=== PATIENT | male | born 1990 | race Caucasian/White ===

== ENCOUNTER → 2020-05-19 13:49 | Outpatient (BNVA) | payer MEDICAID, SELFPAY | PROVIDERS: PCP Family Medicine; Visit Provider Internal Medicine Gastroenterology ==

== ENCOUNTER 2020-07-16 08:10 | Outpatient (REF) | payer MEDICAID, SELFPAY ==
--- NOTE | ~2020-07-16 | MR_ITS ---
EXAMINATION: MR OF THE ABDOMEN AND PELVIS WITH AND WITHOUT CONTRAST CLINICAL INFORMATION: Assess small and large bowel activity. COMPARISON: None TECHNIQUE: Sagittal axial and coronal sequences through the abdomen and pelvis following oral Breeza contrast and with and without IV contrast. The patient received 1.5 L of oral Breeza contrast and 9 mL intravenous Gadavist gadolinium contrast. FINDINGS: The stomach is well distended and is normal appearing. The small bowel is normal appearing. No bowel wall thickening, enhancement, bowel dilatation or stricture is seen. The large bowel is normal appearing. No wall thickening, dilatation or abnormal wall enhancement is seen. The appendix is normal. No inflammatory changes of the surrounding fat or prominent vascularity/vasa recta, abscess or fistula is seen. The lung bases are clear. The liver and gallbladder are normal. There is no biliary duct dilatation. The pancreas is normal. The main pancreatic duct does not appear dilated. The spleen is normal. The adrenal glands and kidneys are normal. The bladder is normal. The prostate gland does not appear enlarged. No ascites or adenopathy is seen. Vascular structures are unremarkable. No hernia is seen. Bony structures are unremarkable. MR/MR abdomen wo/w con IMPRESSION: Unremarkable MRI of the abdomen and pelvis. No evidence of active inflammatory bowel disease.
--- NOTE | ~2020-07-16 | MR_ITS ---
EXAMINATION: MR OF THE ABDOMEN AND PELVIS WITH AND WITHOUT CONTRAST CLINICAL INFORMATION: Assess small and large bowel activity. COMPARISON: None TECHNIQUE: Sagittal axial and coronal sequences through the abdomen and pelvis following oral Breeza contrast and with and without IV contrast. The patient received 1.5 L of oral Breeza contrast and 9 mL intravenous Gadavist gadolinium contrast. FINDINGS: The stomach is well distended and is normal appearing. The small bowel is normal appearing. No bowel wall thickening, enhancement, bowel dilatation or stricture is seen. The large bowel is normal appearing. No wall thickening, dilatation or abnormal wall enhancement is seen. The appendix is normal. No inflammatory changes of the surrounding fat or prominent vascularity/vasa recta, abscess or fistula is seen. The lung bases are clear. The liver and gallbladder are normal. There is no biliary duct dilatation. The pancreas is normal. The main pancreatic duct does not appear dilated. The spleen is normal. The adrenal glands and kidneys are normal. The bladder is normal. The prostate gland does not appear enlarged. No ascites or adenopathy is seen. Vascular structures are unremarkable. No hernia is seen. Bony structures are unremarkable. MR/MR pelvis wo/w con IMPRESSION: Unremarkable MRI of the abdomen and pelvis. No evidence of active inflammatory bowel disease.
== END 2020-07-16 08:11 | disposition home or self-care (01) ==
LOC: HO.MRI 08:10
PROVIDERS: Visit Provider Internal Medicine Gastroenterology
DX: K50.80 Crohn's disease of both small and large intestine without complications (principal)
CPT/HCPCS: 72197; 74183; A9585

== ENCOUNTER → 2021-03-06 11:38 | Outpatient (BNVA) | payer MEDICAID, SELFPAY | PROVIDERS: PCP Family Medicine; Visit Provider Internal Medicine Gastroenterology ==

== ENCOUNTER 2021-03-11 11:43 | Outpatient (REF) | payer MEDICAID, SELFPAY | END 2021-03-11 11:44 | disposition home or self-care (01) | LOC: HO.LAB 11:43 | PROVIDERS: PCP Family Medicine; Visit Provider Internal Medicine Gastroenterology | DX: Z13.89 Encounter for screening for other disorder (principal) ==

== ENCOUNTER 2021-03-16 12:14 | Outpatient (REF) | payer MEDICAID, SELFPAY ==
[2021-03-16 12:50] LABS: MANUAL DIFF FLAG NO
[2021-03-16 12:59] LABS: Basophils Percent Auto 0.4 % (0-2); Eosinophils Absolute Auto 0.1 X10*3/uL (0.0-0.4); Eosinophils Percent Auto 1.6 % (0-4); Hematocrit 44.8 % (42.0-52.0); Hemoglobin 15.2 g/dl (14.0-18.0); Imm Gran Abs Auto 0.01 X10*3/uL (0.00-0.03); Imm Gran Pct Auto 0.2 % (0.0-0.4); Lymphocytes Absolute Auto 1.4 X10*3/uL (1.2-4.9); Lymphocytes Percent Auto 27.9 % (20-40); Mean Corpuscular HGB Conc 33.9 g/dl (31.0-36.0); Mean Corpuscular Hemoglobin 29.7 pg (27.0-33.0); Mean Corpuscular Volume 87.7 fL (80.0-98.0); Mean Platelet Volume 11.7 fL (9.4-12.4); Monocytes Absolute Auto 0.4 X10*3/uL (0.1-1.2); Monocytes Percent Auto 6.9 % (2-11); Neutrophils Absolute Auto 3.2 x10*3/uL (2.0-8.3); Platelet Count 211 X10*3/uL (160-400); Red Blood Count 5.11 X10*6/uL (4.60-5.80); Red Cell Distribution Width 11.7 % (11.0-16.0); White Blood Count 5.1 X10*3/uL (4.8-10.8)
[2021-03-16 13:30] LABS: Alanine Aminotransferase 42 U/L (0-40); Albumin Level 4.4 g/dL (3.5-5.0); Alkaline Phosphatase 60 U/L (39-117); Anion Gap 11 (12-20); Aspartate Amino Transferase 26 U/L (5-37); Bilirubin Total 0.5 mg/dL (0.0-1.0); Blood Urea Nitrogen 10 mg/dL (9-16); C Reactive Protein 0.18 mg/dL (< or = 0.50); Calcium 9.6 mg/dL (8.4-10.2); Carbon Dioxide 29 mmol/L (22-29); Chloride 105 mmol/L (96-108); Estimated Glomerular Filt Rate > 60; Glucose Random 101 mg/dL (60-115); Potassium 4.5 mmol/L (3.3-5.1); Sodium 140 mmol/L (135-145); Total Protein 7.2 g/dL (6.5-8.0)
[2021-03-16 13:50] LABS: Ferritin 81 ng/mL (20-250); Vitamin D 25-OH Total 33.2 ng/mL (>30)
[2021-03-16 14:06] LABS: Folate 13.9 ng/mL (> or = 4.0); Vitamin B12 436 pg/mL (200-900)
[2021-03-17 08:51] LABS: ~HepC Num1 0.09 S/CO (0.00-0.79); ~Hepatitis B Surface Antibody REACTIVE (Nonreactive); ~Hepatitis C Antibody Nonreactive (Nonreactive)
[2021-03-17 09:11] LABS: HBc Num1 0.07 S/CO (0.00-0.79); Hepatitis B Core Antibody Nonreactive (Nonreactive); Hepatitis B Surface Antigen Negative (Negative)
[2021-03-18 08:25] LABS: HBsAGNum1 0.21 S/CO (0.00-0.99)
[2021-03-18 08:35] LABS: Hepatitis A Antibody IgM 0.15 Index (0-0.79); ~Hepatitis A Antibody IgM Nonreactive (Nonreactive)
[2021-03-18 19:56] LABS: TS Negative Control Passed; TS Panel A 0; TS Panel B 0; TS Positive Control Passed; TSpotTB Negative (Negative)
[2021-03-19 01:01] LABS: Vitamin K1 4384 pg/mL (130-1500)
[2021-03-19 07:02] LABS: Zinc 64 mcg/dL (60-130)
[2021-03-19 16:36] LABS: Vitamin B6 11.4 ng/mL (2.1-21.7)
[2021-03-19 19:41] LABS: Alpha-Tocopherol 12.8 mg/L (5.7-19.9); Beta-Gamma Tocopherol <1.0 mg/L (<=4.3)
[2021-03-20 00:56] LABS: Vitamin A 41 mcg/dL (38-98)
[2021-03-20 12:16] LABS: Vitamin B5 (Pantothenic Acid) 129 ng/mL (<275)
[2021-03-21 12:06] LABS: Nicotinamide <20 ng/mL; Vit B3 - Nicotinic Acid <20 ng/mL
== END 2021-03-16 12:15 | disposition home or self-care (01) ==
LOC: HO.LAB 12:14
PROVIDERS: PCP Family Medicine; Visit Provider Internal Medicine Gastroenterology
DX: Z11.1 Encounter for screening for respiratory tuberculosis (principal); K50.80 Crohn's disease of both small and large intestine without complications; K75.81 Nonalcoholic steatohepatitis (NASH)
CPT/HCPCS: 36415; 80053; 82180; 82306; 82607; 82728; 82746; 84207; 84446; 84590; 84591; 84597; 84630; 85025; 86140; 86481; 86704; 86706; 86709; 86803; 87340

== ENCOUNTER 2021-06-24 09:27 | Day surgery (SDC) | payer MEDICAID, SELFPAY ==
--- NOTE | 2021-06-24 09:51 | MHC.SHP ---
Pre-Procedural Eval Section A Date of Service: 06/24/21 Section B Chief Complaint: crohn's disease Relevant Family History (Specify if Yes): No Relevant Social History: None Present Medications: see Short Stay Collaborative assessment Medical History: Significant History (Bipolar 1 disorder Crohn's disease of both small and large intestine Depression GERD (gastroesophageal reflux disease) History of anemia History of GI bleed Hx of anxiety disorder Migraine) History of Previous Operations: Relevant previous surgery/procedure and date(s) (egd,colonoscopy) Allergies: Allergies Allergy/AdvReac Type Severity Reaction Status Date / Time Enviromental Allergy Mild unknown Uncoded 06/18/21 14:56 Review of Systems Sugical H&P ROS: Negative: Constitution, Cardiovascular, Respiratory, Neurological, Psychiatric, Hem-Onc, Allergic/Immunologic, Gastrointestinal, Genitourinary, Musculoskeletal, Integumentary, Endocrine and Eyes/Ears/Nose/Throat Exam Surgical H&P Exam: Normal: HEENT, Normal: Heart, Normal: Lungs, Normal: Extremities, Normal: Abdomen, Normal: Skin and Normal: Neurological Plan Diagnosis/Plan: Unchanged I have reviewed the history and physical and performed a pertinent physical examination on my patient. No changes have occurred unless specified.
[2021-06-24 09:52] VITALS: BP 136/82; PULSE 81; RESP 16; TEMP 36.3; O2SAT 98; BMI 30.7
--- NOTE | 2021-06-24 09:52 | P.CONAN_ITS ---
[facility] Active Problems Active Problems: All Active Problems (Updated 06/18/21 @ 14:58 by Tish Perry RN) Crohn's disease of both small and large intestine (Acute) Past Medical History Medical History Bipolar 1 disorder Crohn's disease of both small and large intestine Depression GERD (gastroesophageal reflux disease) History of anemia History of GI bleed Hx of anxiety disorder Migraine Family History Family History Father Diabetes Hypertension Family history of problems with anesthesia: No Surgical History Surgical History History of colonoscopy Hx of esophagogastroduodenoscopy History of Problems with Anesthesia: No Social History Social History Household Members: Family Alcohol intake: current Alcohol intake frequency: holidays/special occasions only Advance Directives: No Advance Directives Information Provided: Yes Current occupational status: unemployed Meds Allergies Allergy/AdvReac Type Severity Reaction Status Date / Time Enviromental Allergy Mild unknown Uncoded 06/18/21 14:56 Home Medications Medication Instructions Recorded Confirmed Last Taken Type azathioprine 50 mg tablet 50 mg PO DAILY 05/19/20 06/18/21 Unknown History cholecalciferol (vitamin D3) 25 25 mcg PO DAILY 06/18/21 06/18/21 Unknown History mcg (1,000 unit) capsule (Vitamin D3) mesalamine 1.2 gram tablet,delayed 4 tab PO DAILY 06/18/21 06/18/21 Unknown History release (Lialda) Exam Exam Date and Time: June 24, 2021 0952 Airway Mallampati Class: II TM Dist: >3cm Neck ROM: Full Heart: rrr Lungs: cta Assessment and Plan Assessment Anesthesia Assessment: Anesthesia Plan Discussed and Chart Reviewed Final Anesthetic Review Family History of Problems with Anesthesia: No History of Problems with Anesthesia: No NPO: Yes ASA Class: II Final Preanesthetic Review: No Changes in Pt Med Stat, Meds/Allgs Chart Reviewed and Consent Obtained/Reviewed Patient Risk: Intermediate Procedure Risk: Intermediate Anesthetic Plan Anesthetic Plan: MAC: Disposition: Standard PACU
--- NOTE | 2021-06-24 09:57 | PM.OP ---
Brief Operative Note Date of Service: 06/24/21 Pre-op diagnosis: crohns disease Post-op diagnosis: same Procedure: see op note Surgeon: Aaliyah Bai MD Anesthesia: MAC Was an Relief Map Modeler used for this Procedure?: No Estimated blood loss (mL): 0 Condition: stable Disposition: PACU
[2021-06-24] MEDS: Lactated Ringers 1,000 ML 50 ML IVCONT (09:58)
--- NOTE | 2021-06-24 09:58 | W.PM.OPN ---
Operative Note Operative Note Date of Service: 06/24/21 Narrative: Operative Information Procedure Description: Colonoscopy COLONOSCOPY Instrument: Olympus variable stiffness pediatric scope 190L Colonoscopy Monitoring: Vital signs and clinical assessment, continuous EKG monitoring, Pulse oximetry, Carbon Dioxide monitoring and blood pressure monitoring were done throughout the procedure. Colon withdrawal time was 22 minutes. Procedure: The patient was placed in the left lateral decubitis position and pre-procedure medications were administered. After a digital rectal examination of the ano-rectum, the video colonoscope was inserted into the rectum and advanced through the colon to the cecum/TI. The colonoscope was slowly withdrawn in a retrograde panoramic fashion and the colon mucosa was carefully examined including a retroflexed view of the rectum. Findings and interventions are described below. Procedure Difficulty: easy Findings: Terminal Ileum-normal, erythema around the ileocecal valve area Cecum: patchy erythema Ascending Colon: slight granularity to mucosa, granular and nodular folds Transverse Colon -normal Descending Colon:normal Sigmoid Colon: patchy erythema Rectum: Retroflexion with small internal hemorrhoids, grade I Anorectum - normal Colon preparation: [place] Bowel Preparation Scale Right colon; 2 Transverse colon: 3 Left colon; 2 (0 = Unprepared colon segment with mucosa not seen due to solid stool that cannot be cleared. 1 = Portion of mucosa of the colon segment seen, but other areas of the colon segment not well seen due to staining, residual stool and/or opaque liquid. 2 = Minor amount of residual staining, small fragments of stool and/or opaque liquid, but mucosa of colon segment seen well. 3 = Entire mucosa of colon segment seen well with no residual staining, small fragments of stool or opaque liquid) Impression and Post Procedure Diagnosis: colitis internal hemorrhoids Plan: High fiber diet leaflet Avoid straining at stool, epsom salts and sitz bath, anusol supps or cream Repeat Colonoscopy in 1-2 years or earlier if clinically indicated depending on results may need biologic for deeper remission Above findings were reviewed with the patient and relevant handouts were provided if indicated.
[2021-06-24 10:41] VITALS: BP 127/75; PULSE 94; RESP 14; TEMP 36.2; O2SAT 97
[2021-06-24 10:56] VITALS: BP 122/74; PULSE 79; RESP 16; TEMP 36.2; O2SAT 97
== END 2021-06-24 12:08 | disposition home or self-care (01) ==
PROVIDERS: PCP Family Medicine; Visit Provider Internal Medicine Gastroenterology
PROC: 0DJD8ZZ Inspection of Lower Intestinal Tract, Via Natural or Artificial Opening Endoscopic (ICD-10-PCS; CPT 45378; principal; 2021-06-24 11:00)
DX: K50.80 Crohn's disease of both small and large intestine without complications (principal); K64.0 First degree hemorrhoids; K21.9 Gastro-esophageal reflux disease without esophagitis; F31.9 Bipolar disorder, unspecified; F41.1 Generalized anxiety disorder; G43.909 Migraine, unspecified, not intractable, without status migrainosus; Z79.899 Other long term (current) drug therapy
CPT/HCPCS: 45380; 88305

== ENCOUNTER 2021-07-15 11:17 | Outpatient (REF) | payer MEDICAID, SELFPAY | END 2021-07-15 11:18 | disposition home or self-care (01) | LOC: HO.MDS 11:17 | PROVIDERS: PCP Family Medicine; Visit Provider Internal Medicine Gastroenterology | DX: K50.80 Crohn's disease of both small and large intestine without complications (principal) | CPT/HCPCS: 96365; J3380 ==

== ENCOUNTER → 2021-07-27 11:12 | Outpatient (BNVA) | payer MEDICAID, SELFPAY | PROVIDERS: PCP Family Medicine; Referring Provider Family Medicine; Visit Provider Internal Medicine Gastroenterology | DX: K50.90 Crohn's disease, unspecified, without complications (principal) | CPT/HCPCS: 99212 ==

== ENCOUNTER 2021-07-29 12:50 | Outpatient (REF) | payer MEDICAID, SELFPAY | END 2021-07-29 12:51 | disposition home or self-care (01) | LOC: HO.MDS 12:50 | PROVIDERS: PCP Family Medicine; Visit Provider Internal Medicine Gastroenterology | DX: K50.80 Crohn's disease of both small and large intestine without complications (principal) | CPT/HCPCS: 96365; J3380 ==

== ENCOUNTER 2021-08-26 11:32 | Outpatient (REF) | payer MEDICAID, SELFPAY | END 2021-08-26 11:33 | disposition home or self-care (01) | LOC: HO.MDS 11:32 | PROVIDERS: PCP Family Medicine; Visit Provider Internal Medicine Gastroenterology | DX: K50.80 Crohn's disease of both small and large intestine without complications (principal) | CPT/HCPCS: 96365; J3380 ==

== ENCOUNTER 2021-09-21 08:04 | Outpatient (REF) | payer MEDICAID, SELFPAY ==
--- NOTE | ~2021-09-21 | MR_ITS ---
EXAMINATION: MR ANGIOGRAPHY BRAIN WITHOUT CONTRAST CLINICAL INFORMATION: Severe headache. COMPARISON: None available. TECHNIQUE: 3D [id number] MR angiography was performed through the brain without the use of intravenous gadolinium and axial source images were reviewed along with rotating MIPs. FINDINGS: Normal flow-related signal within the anterior circulation without evidence of focal stenosis or occlusion of the intradural internal carotid, middle cerebral, or anterior cerebral arteries. Normal flow-related signal within the posterior circulation without evidence of focal stenosis or occlusion of the intradural vertebral, basilar, superior cerebellar, or posterior cerebral arteries. No demonstrated intradural aneurysms. The cerebellar tonsils are low lying, positioned 0.5 cm below the foramen magnum. The CSF space of the foramen magnum is maintained. No additional significant abnormalities on limited evaluation of the intracranial structures. Normal appearance of the pituitary gland. The suprasellar cistern remains widely patent. Moderate rightward nasal septal deviation with spurring. MR/MR angio head wo con IMPRESSION: 1. Normal brain MRA. 2. Borderline Chiari I malformation. The cerebellar tonsils are positioned 0.5 cm below the foramen magnum.
== END 2021-09-21 08:05 | disposition home or self-care (01) ==
LOC: HO.MRI 08:04
PROVIDERS: PCP Family Medicine; Visit Provider Family Medicine
DX: G44.82 Headache associated with sexual activity (principal)
CPT/HCPCS: 70544

== ENCOUNTER 2021-10-21 12:10 | Outpatient (REF) | payer MEDICAID, SELFPAY | END 2021-10-21 12:11 | disposition home or self-care (01) | LOC: HO.MDS 12:10 | PROVIDERS: PCP Family Medicine; Visit Provider Internal Medicine Gastroenterology | DX: K50.80 Crohn's disease of both small and large intestine without complications (principal) | CPT/HCPCS: 96365; J3380 ==

== ENCOUNTER 2021-12-16 12:58 | Outpatient (REF) | payer MEDICAID, SELFPAY | END 2021-12-16 12:59 | disposition home or self-care (01) | LOC: HO.MDS 12:58 | PROVIDERS: Visit Provider Internal Medicine Gastroenterology | DX: K50.80 Crohn's disease of both small and large intestine without complications (principal) | CPT/HCPCS: 96365; J3380 ==

== ENCOUNTER 2022-02-12 12:54 | Outpatient (REF) | payer MEDICAID, SELFPAY | END 2022-02-12 12:55 | disposition home or self-care (01) | LOC: HO.MDS 12:54 | PROVIDERS: Visit Provider Internal Medicine Gastroenterology | DX: K50.80 Crohn's disease of both small and large intestine without complications (principal) | CPT/HCPCS: 96365; J3380 ==

== ENCOUNTER 2022-04-07 12:55 | Outpatient (REF) | payer MEDICAID, SELFPAY ==
[2022-04-10 02:24] LABS: TS Negative Control Passed; TS Panel A 0; TS Panel B 0; TS Positive Control Passed; TSpotTB Negative (Negative)
== END 2022-04-07 12:56 | disposition home or self-care (01) ==
LOC: HO.LAB 12:55
PROVIDERS: PCP Family Medicine; Visit Provider Internal Medicine Gastroenterology
DX: Z11.1 Encounter for screening for respiratory tuberculosis (principal); K50.80 Crohn's disease of both small and large intestine without complications
CPT/HCPCS: 36415; 86481

== ENCOUNTER 2022-04-23 12:36 | Outpatient (REF) | payer MEDICAID, SELFPAY | END 2022-04-23 12:37 | disposition home or self-care (01) | LOC: HO.MDS 12:36 | PROVIDERS: Visit Provider Internal Medicine Gastroenterology | DX: K50.80 Crohn's disease of both small and large intestine without complications (principal) | CPT/HCPCS: 96365; J3380 ==

== ENCOUNTER 2022-05-24 13:47 | Outpatient (REF) | payer MEDICAID, SELFPAY ==
[2022-05-24 14:56] LABS: MANUAL DIFF FLAG NO
[2022-05-24 15:38] LABS: Basophils Percent Auto 0.5 % (0-2); Eosinophils Percent Auto 0.2 % (0-4); Hematocrit 45.5 % (42.0-52.0); Hemoglobin 15.4 g/dl (14.0-18.0); Imm Gran Abs Auto 0.01 X10*3/uL (0.00-0.03); Imm Gran Pct Auto 0.2 % (0.0-0.4); Lymphocytes Percent Auto 35.8 % (20-40); Mean Corpuscular HGB Conc 33.8 g/dl (31.0-36.0); Mean Corpuscular Hemoglobin 28.9 pg (27.0-33.0); Mean Corpuscular Volume 85.4 fL (80.0-98.0); Mean Platelet Volume 11.5 fL (9.4-12.4); Monocytes Absolute Auto 0.3 X10*3/uL (0.1-1.2); Monocytes Percent Auto 5.8 % (2-11); Neutrophils Absolute Auto 3.2 x10*3/uL (2.0-8.3); Neutrophils Percent Auto 57.5 % (45-73); Platelet Count 221 X10*3/uL (160-400); Red Blood Count 5.33 X10*6/uL (4.60-5.80); Red Cell Distribution Width 11.7 % (11.0-16.0); White Blood Count 5.5 X10*3/uL (4.8-10.8)
[2022-05-24 15:44] LABS: Alanine Aminotransferase 58 U/L (0-40); Albumin Level 4.6 g/dL (3.5-5.0); Alkaline Phosphatase 67 U/L (39-117); Anion Gap 13 (12-20); Aspartate Amino Transferase 36 U/L (5-37); Blood Urea Nitrogen 14 mg/dL (9-16); C Reactive Protein 0.14 mg/dL (< or = 0.50); Calcium 9.6 mg/dL (8.4-10.2); Carbon Dioxide 27 mmol/L (22-29); Chloride 103 mmol/L (96-108); Estimated Glomerular Filt Rate > 60; Glucose Random 89 mg/dL (60-115); Potassium 4.3 mmol/L (3.3-5.1); Sodium 139 mmol/L (135-145); Total Protein 7.2 g/dL (6.5-8.0)
[2022-05-24 16:13] LABS: Ferritin 139 ng/mL (20-250); Folate 15.9 ng/mL (> or = 4.0); Vitamin B12 480 pg/mL (200-900)
== END 2022-05-24 13:48 | disposition home or self-care (01) ==
LOC: HO.LAB 13:47
PROVIDERS: PCP Family Medicine; Referring Provider Family Medicine; Visit Provider Internal Medicine Gastroenterology
DX: K50.80 Crohn's disease of both small and large intestine without complications (principal); K75.81 Nonalcoholic steatohepatitis (NASH)
CPT/HCPCS: 36415; 80053; 82607; 82728; 82746; 85025; 86140; 99212

== ENCOUNTER 2022-06-18 13:42 | Outpatient (REF) | payer MEDICAID, SELFPAY | END 2022-06-18 13:43 | disposition home or self-care (01) | LOC: HO.MDS 13:42 | PROVIDERS: Visit Provider Internal Medicine Gastroenterology | DX: K50.80 Crohn's disease of both small and large intestine without complications (principal) | CPT/HCPCS: 96365; J3380 ==

== ENCOUNTER 2022-08-13 13:27 | Outpatient (REF) | payer OTHER, SELFPAY | END 2022-08-13 13:28 | disposition home or self-care (01) | LOC: HO.MDS 13:27 | PROVIDERS: Visit Provider Internal Medicine Gastroenterology | DX: K50.80 Crohn's disease of both small and large intestine without complications (principal) | CPT/HCPCS: 96365; J3380 ==

== ENCOUNTER 2022-10-06 14:01 | Outpatient (REF) | payer OTHER, SELFPAY | END 2022-10-06 14:02 | disposition home or self-care (01) | LOC: HO.MDS 14:01 | PROVIDERS: Visit Provider Internal Medicine Gastroenterology | DX: K50.90 Crohn's disease, unspecified, without complications (principal) | CPT/HCPCS: 96365; J3380 ==

== ENCOUNTER 2022-11-29 13:55 | Outpatient (AMB) | payer OTHER, MEDICAID, SELFPAY ==
--- NOTE | 2022-11-29 14:06 | MHC.OFFVIS ---
Intake Vital Signs 11/29/22 14:07 Height 5 ft 6 in Weight 194 lb 0.108 oz BMI 31.3 BP 118/81 Blood Pressure Location Lt brachial Position Sitting Pulse 68 Intake Visit Reasons: 6 month follow up Intake Note: Juan Carlos presents in the office as a 6 month follow up. CC: He states that he has a lot of questions. 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 Based on this he was placed on entyvio with good response Other data: IMAGING: MRI 06/2020-- unremarkable Prior endoscopies: EGD/COLO--[id number] Moderate activity hep flex and rectosigmoid? (skip areas documented) 2005 colon and small bowel involved. (colon most active @ time? 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 VITAL SIGNS:see workflow HEENT: Nonicteric sclerae, PERRLA, EOMI. Oropharynx clear. Moist mucous membranes. Conjunctivae appear well perfused. No thyroid mass. CHEST: Chest wall is nontender. HEART: Regular rate and rhythm without murmurs. LUNGS: Clear to auscultation bilaterally. ABDOMEN: Soft, positive bowel sounds, LUQ tender, no organomegaly.no flank tenderness SKIN: No rash, no excessive bruising, petechiae, or purpura. NEUROLOGIC: Cranial nerves II-XII intact without motor/sensory deficit. A/P: 1/ crohns disease, on entyvio with good response thus far clinically--going to [place] later this year PLAN: 1/ cont with entyvio--if available in [place] continue, if not then change to humira 2/ repeat colonoscopy maybe before he leaves, or can do it in [place] ? [facility] Medical History Bipolar 1 disorder Crohn's disease of both small and large intestine Depression GERD (gastroesophageal reflux disease) History of anemia History of GI bleed Hx of anxiety disorder Migraine Surgical History History of colonoscopy Hx of esophagogastroduodenoscopy Family History Father Diabetes Hypertension Social History Household Members: Family Alcohol intake: current Alcohol intake frequency: holidays/special occasions only Patient Tobacco Use Status: Never used Tobacco Current occupational status: unemployed Physical Exam Vital Signs: Last Vital Signs Pulse 68 11/29/22 14:07 BP 118/81 11/29/22 14:07 BMI result Body Mass Index 31.3 Assessment & Plan Assessment & Plan (1) Crohn's disease of both small and large intestine: Code(s): K50.80 - Crohn's disease of both small and large intestine without complications Coding Level of Care Code Est Pt Level 3 (20104) Diagnoses Crohn's disease of both small and large intestine K50.80
[2022-11-29 14:07] VITALS: BP 118/81; PULSE 68; BMI 31.3
== END 2022-11-29 15:19 | disposition home or self-care (01) ==
PROVIDERS: PCP Family Medicine; Visit Provider Internal Medicine Gastroenterology
DX: K50.80 Crohn's disease of both small and large intestine without complications (principal)
CPT/HCPCS: 99213

== ENCOUNTER → 2022-11-29 13:55 | Outpatient (BNVA) | payer OTHER, SELFPAY | PROVIDERS: PCP Family Medicine; Visit Provider Internal Medicine Gastroenterology | DX: K50.80 Crohn's disease of both small and large intestine without complications (principal); K21.9 Gastro-esophageal reflux disease without esophagitis | CPT/HCPCS: 99212 ==

== ENCOUNTER 2022-12-01 13:57 | Outpatient (REF) | payer OTHER, SELFPAY | END 2022-12-01 13:58 | disposition home or self-care (01) | LOC: HO.MDS 13:57 | PROVIDERS: Visit Provider Internal Medicine Gastroenterology | DX: K50.90 Crohn's disease, unspecified, without complications (principal) | CPT/HCPCS: 96365; J3380 ==

== ENCOUNTER 2022-12-23 07:45 | Day surgery (SDC) | payer OTHER, SELFPAY ==
[2022-12-21 11:13] VITALS: BMI 31.3
--- NOTE | 2022-12-22 10:27 | P.CONAN_ITS ---
Documented by User: Jessa Carey NP 12/22/22 10:27 HPI - Anesthesia Eval Consult details Narrative: 32yo M for Colonoscopy PMFSH Active Problems Active Problems: All Active Problems (Updated 06/18/21 @ 14:58 by Tish Perry RN) Crohn's disease of both small and large intestine (Acute) Past Medical History Medical History Bipolar 1 disorder Crohn's disease of both small and large intestine Depression GERD (gastroesophageal reflux disease) History of anemia History of GI bleed Hx of anxiety disorder Migraine Family History Family History Father Diabetes Hypertension Family history of problems with anesthesia: No Surgical History Surgical History History of colonoscopy Hx of esophagogastroduodenoscopy History of Problems with Anesthesia: No Social History Social History Household Members: Family Alcohol intake: current Alcohol intake frequency: holidays/special occasions only Patient Tobacco Use Status: Never used Tobacco Have you been hit, kicked, punched, or otherwise hurt by someone within the past year? If so, by whom?: No Are you DNR?: No Advance Directives: No Advance Directives Information Provided: Yes Recently lost weight without trying: No Eating poorly because of decreased appetite: No Nutrition Risks: No Nutritional Risk Current occupational status: unemployed Meds Allergies Allergy/AdvReac Type Severity Reaction Status Date / Time Enviromental Allergy Mild unknown Uncoded 11/29/22 14:09 Exam Exam Date and Time: December 22, 2022 1027 Height,Weight and Vital Signs: Height 5 ft 6 in Weight 87.997 kg Assessment and Plan Assessment Anesthesia Assessment: Chart Reviewed Final Anesthetic Review Family History of Problems with Anesthesia: No History of Problems with Anesthesia: No Documented by User: Travis Nick MD 12/23/22 08:50 PMFSH Past Medical History Medical History Bipolar 1 disorder Crohn's disease of both small and large intestine Depression GERD (gastroesophageal reflux disease) History of anemia History of GI bleed Hx of anxiety disorder Migraine Family History Family History Father Diabetes Hypertension Surgical History Surgical History History of colonoscopy Hx of esophagogastroduodenoscopy Social History Social History Household Members: Family Alcohol intake: current Alcohol intake frequency: holidays/special occasions o nly Patient Tobacco Use Status: Never used Tobacco Have you been hit, kicked, punched, or otherwise hurt by someone within the past year? If so, by whom?: No Are you DNR?: No Advance Directives: No Advance Directives Information Provided: Yes Recently lost weight without trying: No Eating poorly because of decreased appetite: No Nutrition Risks: No Nutritional Risk Current occupational status: unemployed Meds Allergies Allergy/AdvReac Type Severity Reaction Status Date / Time Enviromental Allergy Mild unknown Uncoded 11/29/22 14:09 Exam Airway Mallampati Class: I TM Dist: >3cm Neck ROM: Full Loose/Missing/Broken Teeth: No Heart: ok Lungs: ok Assessment and Plan Assessment Anesthesia Assessment: Anesthesia Plan Discussed Final Anesthetic Review NPO: Yes ASA Class: II Final Preanesthetic Review: No Changes in Pt Med Stat, Meds/Allgs Chart Reviewed, Consent Obtained/Reviewed and Anes Risks/Benef Reviewed Patient Risk: Intermediate Procedure Risk: Low Anesthetic Plan Anesthetic Plan: MAC: and Agree w/ Assess. and Plan Disposition: Standard PACU
[2022-12-23 08:05] VITALS: BP 148/92; PULSE 79; RESP 18; TEMP 36.4; O2SAT 96
[2022-12-23] MEDS: Lactated Ringers 1,000 ML 100 ML IVCONT (08:25)
--- NOTE | 2022-12-23 08:31 | MHC.SHP ---
Pre-Procedural Eval Section A Date of Service: 12/23/22 The patient is an INPATIENT: No Changes since office visit: Yes Patient answered all questions; No Cold of Flu in the past 2 weeks, No New Medical Problems and No Changes in Medication The History & Physical has been completed within 30 days and I have reviewed it.: Yes Section B Chief Complaint: Crohn's disease of both small and large intestine Allergies: Allergies Allergy/AdvReac Type Severity Reaction Status Date / Time Enviromental Allergy Mild unknown Uncoded 11/29/22 14:09 Plan I have reviewed the history and physical and performed a pertinent physical examination on my patient. No changes have occurred unless specified. Time Spent With Patient Time: Total time managing care of this patient today ____ minutes.
--- NOTE | 2022-12-23 08:31 | W.PM.OPN ---
Operative Note Operative Note Date of Service: 12/23/22 Narrative: COLONOSCOPY TILL CECUM WITH BIOPSIES AND CHROMOENDOSCOPY Pre-op diagnosis: Crohn's disease surveillance Post-op diagnosis:?same, rectal polyp Endoscopist:? Som Syed MD Anesthesia:?MAC Consent: Indications for the procedure and potential complications of bleeding, perforation, reaction to medications and missed diagnosis were discussed with the patient and informed consent was obtained. Instrument: Olympus PCF H 190 L variable stiffness pediatric colonoscope Monitoring: Vital signs and clinical assessment, intermittent blood pressure monitoring, continuous EKG monitoring, Pulse oximetry and Carbon Dioxide monitoring were done throughout the procedure. Please see anesthesia flowsheet. Colon withdrawl time was 23 minutes. Procedure: The patient was placed in the left lateral decubitis position and pre-procedure medications were administered. After a digital rectal examination of the ano-rectum, the video colonoscope was inserted into the rectum and advanced through the colon to the cecum. Chromoendoscopy was performed using methylene blue. The colonoscope was slowly withdrawn in a retrograde panoramic fashion and the colon mucosa was carefully examined including a retroflexed view of the rectum. Findings and interventions are described below. Procedure Difficulty: Without difficulty Findings: Terminal Ileum: Distal 7-8 cms was examined and appeared normal Cecum: Patchy erythema noted in the entire colon without ulcers or erosions Ascending Colon: Patchy erythema noted in the entire colon without ulcers or erosions Transverse Colon: Patchy erythema noted in the entire colon without ulcers or erosions Descending Colon: Patchy erythema noted in the entire colon without ulcers or erosions Sigmoid Colon: Patchy erythema noted in the entire colon without ulcers or erosions Rectum: A 2-3 mm diminutive appearing polyp - removed with a cold biopsy Ano-rectum: Normal Colon preparation: Excellent Impression and Post Procedure Diagnosis: Colonoscopy Findings: One tiny polyp removed Patchy erythema noted in the entire colon without ulcers or erosions. Colon was examined with chromoendoscopy and four quadrant biopsies were obtained. Plan: Await pathology results Patient has an appointment on 02/28/23 in the [facility] with Dr Bai. Repeat Colonoscopy interval based on path results - in 2-3 years if polyps are adenomatous and for Crohn's disease surveillance. Above findings were reviewed with the patient and colon polyps handout was given in the discharge area
[2022-12-23 09:24] VITALS: BP 119/66; PULSE 89; RESP 16; TEMP 36.2; O2SAT 96
[2022-12-23 09:39] VITALS: BP 131/79; PULSE 81; RESP 16; O2SAT 96
[2022-12-23 09:54] VITALS: BP 126/83; PULSE 76; RESP 16; TEMP 37.2; O2SAT 96
== END 2022-12-23 11:08 | disposition home or self-care (01) ==
PROVIDERS: PCP Family Medicine; Visit Provider Internal Medicine Gastroenterology
PROC: 0DJD8ZZ Inspection of Lower Intestinal Tract, Via Natural or Artificial Opening Endoscopic (ICD-10-PCS; CPT 45378; principal; 2022-12-23 08:20)
DX: K62.1 Rectal polyp (principal); K50.80 Crohn's disease of both small and large intestine without complications; K21.9 Gastro-esophageal reflux disease without esophagitis; Z79.899 Other long term (current) drug therapy
CPT/HCPCS: 45380; 88305; J3010; Q9968

== ENCOUNTER → 2022-12-23 07:45 | Outpatient (BNV) | payer OTHER, SELFPAY | PROVIDERS: PCP Family Medicine; Visit Provider Internal Medicine Gastroenterology | DX: Z12.11 Encounter for screening for malignant neoplasm of colon (principal); K50.80 Crohn's disease of both small and large intestine without complications; D12.8 Benign neoplasm of rectum | CPT/HCPCS: 45380 ==

== ENCOUNTER 2023-01-26 13:53 | Outpatient (REF) | payer OTHER, SELFPAY | END 2023-01-26 13:54 | disposition home or self-care (01) | LOC: HO.MDS 13:53 | PROVIDERS: Visit Provider Internal Medicine Gastroenterology | DX: K50.90 Crohn's disease, unspecified, without complications (principal) | CPT/HCPCS: 96365; J3380 ==